=== PATIENT | male | born 1930 | race Caucasian/White ===

== ENCOUNTER → 2017-03-16 | Outpatient (CLI) | payer MEDICARE, BC ==
[~2017-03-16] MED LIST: ASPIRIN 32325 MG/TAB PO; ASPIRIN 81M81 MG/TA2 PO; BENADRYL25 M2 PO; LOPRESSOR 225 MG/TAB PO; LORTAB 7.5/5001 TAB PO; NO HOME MEDICATIONS; PEPCID AC 10MG10 MG PO; PERCOCET 325 MG1 TA2 PO; PLAVIX 75MG TAB75 MG PO; SIMVASTATIN20 MG PO; TYLENOL PM EXTR1 CAP PO; VITAMIN D1000 IU PO
== END ==
LOC: COL.RAD 09:08
DX: I65.23 Occlusion and stenosis of bilateral carotid arteries (principal); M47.812 Spondylosis without myelopathy or radiculopathy, cervical region; M43.12 Spondylolisthesis, cervical region; M48.02 Spinal stenosis, cervical region
CPT/HCPCS: Q9967

== ENCOUNTER 2017-04-14 14:38 | Day surgery (SDC) | payer MEDICARE, BC ==
[~2017-04-14] VITALS: Ht 157.5 cm; Wt 60.0 kg
[2017-04-14 15:28] VITALS: BP 139/81; PULSE 88; TEMP 97.9
[2017-04-14 16:55] VITALS: BP 124/86; PULSE 90; TEMP 98.3
[2017-04-14 17:00] VITALS: BP 121/79; PULSE 91
[2017-04-14 17:15] VITALS: BP 133/90; PULSE 87
[2017-04-14 17:30] VITALS: BP 133/78; PULSE 89
== END 2017-04-14 17:52 | disposition home or self-care (01) ==
LOC: SDCO 14:38
DX: K57.30 Diverticulosis of large intestine without perforation or abscess without bleeding (principal); K59.00 Constipation, unspecified; R91.8 Other nonspecific abnormal finding of lung field; R10.13 Epigastric pain; I25.10 Atherosclerotic heart disease of native coronary artery without angina pectoris; R63.4 Abnormal weight loss; C34.90 Malignant neoplasm of unspecified part of unspecified bronchus or lung; Z90.49 Acquired absence of other specified parts of digestive tract; Z95.1 Presence of aortocoronary bypass graft
CPT/HCPCS: J2250; J3010; J7030

== ENCOUNTER 2017-05-23 03:09 | Emergency (ER) | payer MEDICARE, BC ==
[~2017-05-23] VITALS: Ht 160 cm; Wt 58.6 kg
[2017-05-23 03:15] VITALS: TEMP 98.7
[2017-05-23 04:06] LABS: BASO % 0.7 % (0.0-2.0); EOS # 0.1 (0.0-0.7); EOS % 1.7 % (0-4.0); GRAN # 3.9 (1.4-6.5); HEMATOCRIT 40.1 % (42.0-52.0); HEMOGLOBIN 13.8 g/dl (13.5-18.0); LYMPH # 1.3 (1.2-3.4); LYMPH % 21.6 % (20.0-51.0); MEAN CELL VOLUME 93 fl (80.0-100.0); MEAN CORPUSCULAR HEMOGLOBIN 32 pg (27.0-31.0); MEAN CORPUSCULAR HGB CONC 34 g/dl (33.0-37.0); MONO # 0.5 (0.1-0.6); MONO % 7.8 % (1.7-9.3); PLATELET COUNT 144 K/mm3 (130-400); RED BLOOD COUNT 4.31 M/mm3 (4.20-5.60); REDCELL DISTRIBUTION WIDTH-CV 11.9 % (11.5-14.5); WHITE BLOOD COUNT 5.8 K/mm3 (4.8-10.8)
[2017-05-23 04:19] LABS: ADJUSTED CALCIUM 9.5 mg/dL (8.4-10.2); ALANINE AMINOTRANSFERASE 31 U/L (21-72); ALBUMIN 3.8 gm/dL (3.5-5.0); ALKALINE PHOSPHATASE 104 U/L (50-136); ANION GAP 8 mmol/L (7-16); BLOOD UREA NITROGEN 20 mg/dL (9-20); CALCIUM 9.3 mg/dL (8.4-10.2); CARBON DIOXIDE 26 mmol/L (22-30); CHLORIDE 100 mmol/L (98-107); GLUCOSE 109 mg/dL (74-106); LIPASE 464 U/L (23-300); POTASSIUM 3.7 mmol/L (3.4-5.0); SODIUM 135 mmol/L (137-145); TOTAL PROTEIN 6.4 gm/dL (6.4-8.2)
[2017-05-23 04:20] LABS: C-REACTIVE PROTEIN < 0.5 mg/dL (0.0-0.9)
[2017-05-23 07:25] LABS: PH 5 (5-8); SQUAMOUS EPITHELIAL 0-2 /hpf; URINE APPEARANCE Clear; URINE BACTERIA None Seen /hpf; URINE BILIRUBIN Negative (NEGATIVE); URINE BLOOD Negative (NEGATIVE); URINE COLOR Yellow; URINE GLUCOSE Negative (NEGATIVE); URINE KETONE Trace (NEGATIVE); URINE RBC 0-2 /hpf; URINE UROBILINOGEN Negative (NEGATIVE); URINE WBC 0-2 /hpf
[2017-05-23 08:11] VITALS: BP 140/84; PULSE 73
== END 2017-05-23 08:13 | disposition home or self-care (01) ==
LOC: COL.ER 03:09
PROVIDERS: Emergency Medicine
DX: K59.00 Constipation, unspecified (principal); E11.9 Type 2 diabetes mellitus without complications; Z95.1 Presence of aortocoronary bypass graft; Z90.49 Acquired absence of other specified parts of digestive tract; Z90.89 Acquired absence of other organs; Z79.82 Long term (current) use of aspirin
CPT/HCPCS: J2405; J3010; J7040; Q9967

== ENCOUNTER 2017-06-18 13:43 | Day surgery (SDC) | payer MEDICARE, BC ==
[2017-06-18] VITALS (8 sets, daily range): BP systolic 118–157; BP diastolic 69–88; PULSE 68–95; TEMP 97.8–98.4
[~2017-06-18] VITALS: Ht 157.5 cm; Wt 56.9 kg
[2017-06-18] MEDS ORDERED: ASPIRIN 32325 MG/TAB PO (14:36)
== END 2017-06-18 20:51 | disposition home or self-care (01) ==
LOC: SDCO 13:43 → SURG 16:40 → SDCO 20:51
DX: K83.8 Other specified diseases of biliary tract (principal); K86.89 Other specified diseases of pancreas; K83.1 Obstruction of bile duct; I25.10 Atherosclerotic heart disease of native coronary artery without angina pectoris; I11.0 Hypertensive heart disease with heart failure; I50.9 Heart failure, unspecified; I25.2 Old myocardial infarction; M19.90 Unspecified osteoarthritis, unspecified site; Z90.49 Acquired absence of other specified parts of digestive tract; Z96.653 Presence of artificial knee joint, bilateral; Z95.1 Presence of aortocoronary bypass graft
CPT/HCPCS: OP; C1769; C2625; J2704; J7030; Q9967